=== PATIENT | male | born 1965 | race Caucasian/White ===

== ENCOUNTER 2020-03-04 01:19 | Emergency (ER) | payer MEDICAID ==
[~2020-03-04] VITALS: Ht 185.4 cm; Wt 83.0 kg
[2020-03-04 01:27] VITALS: BP 148/111
[2020-03-04] MEDS ORDERED: IBUPROFEN 600MG TABLET PO ONE (02:30)
== END 2020-03-04 04:18 | disposition home or self-care (01) ==
LOC: ER 01:19
DX: S09.8XXA Other specified injuries of head, initial encounter (principal); S89.81XA Other specified injuries of right lower leg, initial encounter; Y04.0XXA Assault by unarmed brawl or fight, initial encounter; Y08.89XA Assault by other specified means, initial encounter; Y93.89 Activity, other specified; Y92.89 Other specified places as the place of occurrence of the external cause
CPT/HCPCS: 73590; 99283